=== PATIENT | male | born 1985 | race Caucasian/White ===

== ENCOUNTER 2025-02-11 13:19 | Outpatient (CLI) | payer BC, SELFPAY | END 2025-02-11 23:59 | disposition home or self-care (01) | LOC: LAB.DROPOF 02-12 02:53 | PROVIDERS: PCP Student in an Organized Health Care Education/Training Program; Visit Provider Student in an Organized Health Care Education/Training Program | DX: N39.0 Urinary tract infection, site not specified (principal) | CPT/HCPCS: 87086 ==